=== PATIENT | female | born 1940 | race Caucasian/White ===

== ENCOUNTER 2017-11-26 07:58 | Day surgery (SDC) | payer MEDICARE, OTHER ==
[~2017-11-26] VITALS: Ht 162.6 cm; Wt 80.3 kg
[2017-11-26] MEDS ORDERED: ATEN25 (08:47)
[2017-11-26] MEDS ORDERED: HYDCHL12.5 (08:48)
[2017-11-26] MEDS ORDERED: ESOM20 (08:48)
[2017-11-26] MEDS ORDERED: LOSA25 (08:48)
[2018-05-23] MEDS ORDERED: POTA10T PO (21:08)
[2018-05-23] MEDS ORDERED: Roxicodone5 MG PO (22:43)
[2018-05-23] MEDS ORDERED: DOCU100 PO (22:43)
[2018-05-23] MEDS ORDERED: IBUP600 PO (22:43)
[2018-05-23] MEDS ORDERED: Zofran Odt4 MG PO (22:43)
== END 2017-11-26 11:15 | disposition home or self-care (01) ==
LOC: ORSCSDS 07:58
PROVIDERS: Internal Medicine Gastroenterology
PROC: 0D758ZZ Dilation of Esophagus, Via Natural or Artificial Opening Endoscopic (ICD-10-PCS; principal; 2017-11-26 09:15)
DX: R13.10 Dysphagia, unspecified (principal); K20.9 Esophagitis, unspecified; I10 Essential (primary) hypertension; K21.9 Gastro-esophageal reflux disease without esophagitis; Z79.82 Long term (current) use of aspirin; Z79.899 Other long term (current) drug therapy
CPT/HCPCS: J7120

== ENCOUNTER 2019-06-09 20:47 | Emergency (ER) | payer MEDICARE, OTHER ==
[~2019-06-09] VITALS: Ht 172.7 cm; Wt 81.7 kg
[~2019-06-09 20:47] MED LIST: ATEN25; DOCU100 PO; ESOM20; HYDCHL12.5; IBUP600 PO; LOSA25 PO; POTA10T PO; Roxicodone5 MG PO; Zofran Odt4 MG PO
[2019-06-09] MEDS ORDERED: Percocet 5-3251 EACH PO (23:02)
== END 2019-06-09 23:20 | disposition home or self-care (01) ==
LOC: ER 20:47
DX: M25.511 Pain in right shoulder (principal); W18.30XA Fall on same level, unspecified, initial encounter; Z91.018 Allergy to other foods; Z88.8 Allergy status to other drugs, medicaments and biological substances; Z88.0 Allergy status to penicillin; Z88.5 Allergy status to narcotic agent; Z79.899 Other long term (current) drug therapy
CPT/HCPCS: 73030; 73200; 99284-25; A9270

== ENCOUNTER 2019-07-14 11:45 | Emergency (ER) | payer MEDICARE, OTHER ==
[~2019-07-14] VITALS: Ht 162.6 cm; Wt 74.8 kg
[~2019-07-14 11:45] MED LIST changes: +Percocet 5-3251 EACH PO
[2019-07-14 12:17] LABS: BASOPHILS ABSOLUTE AUTO 0.03 K/mm3 (0.00-0.23); BASOPHILS PERCENT AUTO 1 % (0-2); EOSINOPHILS ABSOLUTE AUTO 0.04 K/mm3 (0.00-0.68); EOSINOPHILS PERCENT AUTO 1 % (0-6); Hematocrit 42.7 % (33.0-51.0); Hemoglobin 13.9 g/dL (11.5-16.0); IMMATURE GRAN ABSOLUTE AUTO 0.02 K/mm3 (0.00-0.10); IMMATURE GRAN PERCENT AUTO 0 % (0-1); LYMPHOCYTES PERCENT AUTO 25 % (21-46); MONOCYTES ABSOLUTE AUTO 0.62 K/mm3 (0.16-1.47); MONOCYTES PERCENT AUTO 11 % (4-13); Mean Corpuscular HGB 27.8 pg (26.0-34.0); Mean Corpuscular HGB Conc 32.6 g/dL (31.5-36.5); Mean Corpuscular Volume 85 fL (80-100); Mean Platelet Volume 9.5 fL (9.1-12.4); NEUTROPHILS ABSOLUTE AUTO 3.53 K/mm3 (1.96-9.15); NEUTROPHILS PERCENT AUTO 63 % (41-73); Platelet Count 159 K/mm3 (150-400); RDW Coefficient Variation 12.9 % (11.7-14.2); RDW Standard Deviation 39.8 fL (35.1-46.3); White Blood Cell Count 5.64 K/mm3 (4.00-11.30)
[2019-07-14 12:42] LABS: Alanine Aminotransfer (ALT/SGP 22 U/L (12-78); Albumin, Blood 3.6 g/dL (3.4-5.0); Alk Phos 103 U/L (50-136); Anion Gap 6 mmol/L (6-16); Aspartate Aminotrans (AST/SGOT 20 U/L (12-37); Bilirubin, Total 0.5 mg/dL (0.1-1.0); Blood Urea Nitrogen 19 mg/dL (8-24); CO2, Blood 26 mmol/L (21-32); Calcium, Blood 9.7 mg/dL (8.5-10.1); Chloride, Blood 106 mmol/L (98-108); Creatinine, Blood 0.87 mg/dL (0.40-1.00); Globulin, Blood 3.7 g/dL (2.2-4.0); Glomerular Filtration Rate >60 (60-); Glucose, Blood 90 mg/dL (70-99); Potassium, Blood 3.9 mmol/L (3.5-5.5); Sodium, Blood 138 mmol/L (136-145); Total Protein, Blood 7.3 g/dL (6.4-8.2); Troponin I <0.015 ng/mL (0.000-0.040)
[2019-07-14] MEDS ORDERED: ELIQUIS2.5 MG PO (15:01)
[2019-07-14] MEDS ORDERED: CARV6.25 PO (15:02)
== END 2019-07-14 16:11 | disposition home or self-care (01) ==
LOC: ER 11:45
PROVIDERS: Emergency Medicine
DX: I48.91 Unspecified atrial fibrillation (principal); K22.2 Esophageal obstruction; I10 Essential (primary) hypertension; Z88.0 Allergy status to penicillin; Z88.5 Allergy status to narcotic agent; Z88.8 Allergy status to other drugs, medicaments and biological substances; Z91.018 Allergy to other foods; Z79.01 Long term (current) use of anticoagulants; Z79.899 Other long term (current) drug therapy
CPT/HCPCS: 36415; 71046; 80053; 84484; 85025; 93005; 93010; 99285-25

== ENCOUNTER 2019-10-18 12:07 | Emergency (ER) | payer MEDICARE, OTHER ==
[~2019-10-18] VITALS: Ht 162.6 cm; Wt 74.8 kg
[~2019-10-18 12:07] MED LIST changes: +CARV6.25 PO; +ELIQUIS2.5 MG PO
[2019-10-18 13:13] LABS: BASOPHILS ABSOLUTE AUTO 0.02 K/mm3 (0.00-0.23); BASOPHILS PERCENT AUTO 0 % (0-2); EOSINOPHILS ABSOLUTE AUTO 0.07 K/mm3 (0.00-0.68); EOSINOPHILS PERCENT AUTO 1 % (0-6); Hematocrit 42.5 % (33.0-51.0); Hemoglobin 13.6 g/dL (11.5-16.0); IMMATURE GRAN ABSOLUTE AUTO 0.03 K/mm3 (0.00-0.10); IMMATURE GRAN PERCENT AUTO 0 % (0-1); LYMPHOCYTES PERCENT AUTO 20 % (21-46); MONOCYTES ABSOLUTE AUTO 0.67 K/mm3 (0.16-1.47); MONOCYTES PERCENT AUTO 9 % (4-13); Mean Corpuscular HGB 27.6 pg (26.0-34.0); Mean Corpuscular Volume 86 fL (80-100); Mean Platelet Volume 9.3 fL (9.1-12.4); NEUTROPHILS ABSOLUTE AUTO 5.22 K/mm3 (1.96-9.15); NEUTROPHILS PERCENT AUTO 70 % (41-73); Platelet Count 179 K/mm3 (150-400); RDW Coefficient Variation 12.8 % (11.7-14.2); RDW Standard Deviation 40.2 fL (35.1-46.3); Red Blood Cell Count 4.92 M/mm3 (3.80-5.20); White Blood Cell Count 7.51 K/mm3 (4.00-11.30)
[2019-10-18 13:50] LABS: Alanine Aminotransfer (ALT/SGP 26 U/L (12-78); Albumin, Blood 3.7 g/dL (3.4-5.0); Alk Phos 98 U/L (50-136); Anion Gap 8 mmol/L (6-16); Aspartate Aminotrans (AST/SGOT 22 U/L (12-37); Bilirubin, Total 0.8 mg/dL (0.1-1.0); Blood Urea Nitrogen 17 mg/dL (8-24); Bun/Creatinine Ratio 20.2 (12.0-20.0); CO2, Blood 26 mmol/L (21-32); Calcium, Blood 10.2 mg/dL (8.5-10.1); Chloride, Blood 106 mmol/L (98-108); Creatinine, Blood 0.84 mg/dL (0.40-1.00); Globulin, Blood 3.6 g/dL (2.2-4.0); Glomerular Filtration Rate >60 (60-); Glucose, Blood 82 mg/dL (70-99); Potassium, Blood 3.8 mmol/L (3.5-5.5); Sodium, Blood 140 mmol/L (136-145); Total Protein, Blood 7.3 g/dL (6.4-8.2); Troponin I <0.015 ng/mL (0.000-0.040)
[2019-10-18 15:51] LABS: International Normalized Ratio 1.01; Prothrombin Time Results 10.7 Sec (9.7-11.5)
[2019-10-18 17:55] LABS: Source, Urine Clean Catch
[2019-10-18 18:02] LABS: Bilirubin, Urine Neg (Neg); Blood, Urine Neg (Neg); Glucose Qualitative, Urine Neg (Neg); Ketones, Urine Neg (Neg); Leukocyte Esterase, Urine Neg (Neg); Nitrite, Urine Neg (Neg); Protein, Urine Neg (Neg); Urobilinogen, Urine NORM (Normal)
[2019-10-18 18:07] LABS: Appearance, Urine Clear (Clear); Color, Urine Yellow (P-Yellow)
[2019-10-18] MEDS ORDERED: Zofran4 MG PO (19:22)
[2019-10-18] MEDS ORDERED: Lopressor 50 mg50 MG PO (19:22)
== END 2019-10-18 19:45 | disposition home or self-care (01) ==
LOC: ER 12:07
PROVIDERS: Emergency Medicine; Physician Assistant
DX: I48.91 Unspecified atrial fibrillation (principal); R11.0 Nausea; Z88.0 Allergy status to penicillin; Z88.5 Allergy status to narcotic agent; Z91.040 Latex allergy status; Z91.018 Allergy to other foods; Z79.899 Other long term (current) drug therapy
CPT/HCPCS: 36415; 71046; 80053; 81003; 83880; 84484; 85025; 85610; 85730; 93005; 93010; 96374; 99285-25

== ENCOUNTER 2021-03-04 20:48 | Observation (INO) | payer MEDICARE, OTHER ==
[~2021-03-04] VITALS: Ht 162.6 cm; Wt 73.8 kg
[~2021-03-04 20:48] MED LIST changes: +Lopressor 50 mg50 MG PO; +Zofran4 MG PO
[2021-03-04] MEDS ORDERED: CLOP75 PO (21:00)
[2021-03-04 21:23] LABS: BASOPHILS ABSOLUTE AUTO 0.03 K/mm3 (0.00-0.23); BASOPHILS PERCENT AUTO 1 % (0-2); EOSINOPHILS ABSOLUTE AUTO 0.06 K/mm3 (0.00-0.68); EOSINOPHILS PERCENT AUTO 1 % (0-6); Hematocrit 38.3 % (33.0-51.0); Hemoglobin 12.7 g/dL (11.5-16.0); IMMATURE GRAN ABSOLUTE AUTO 0.01 K/mm3 (0.00-0.10); IMMATURE GRAN PERCENT AUTO 0 % (0-1); LYMPHOCYTES ABSOLUTE AUTO 1.64 K/mm3 (0.84-5.20); LYMPHOCYTES PERCENT AUTO 29 % (21-46); MONOCYTES ABSOLUTE AUTO 0.75 K/mm3 (0.16-1.47); MONOCYTES PERCENT AUTO 13 % (4-13); Mean Corpuscular HGB 27.3 pg (26.0-34.0); Mean Corpuscular HGB Conc 33.2 g/dL (31.5-36.5); Mean Corpuscular Volume 82 fL (80-100); Mean Platelet Volume 9.4 fL (9.1-12.4); NEUTROPHILS ABSOLUTE AUTO 3.26 K/mm3 (1.96-9.15); NEUTROPHILS PERCENT AUTO 57 % (41-73); Platelet Count 162 K/mm3 (150-400); RDW Coefficient Variation 12.3 % (11.7-14.2); Red Blood Cell Count 4.65 M/mm3 (3.80-5.20); White Blood Cell Count 5.75 K/mm3 (4.00-11.30)
[2021-03-04 21:37] LABS: Alanine Aminotransfer (ALT/SGP 21 U/L (12-78); Albumin, Blood 3.6 g/dL (3.4-5.0); Albumin/Globulin Ratio 0.9 (0.8-1.8); Alk Phos 127 U/L (50-136); Anion Gap 4 mmol/L (6-16); Aspartate Aminotrans (AST/SGOT 19 U/L (12-37); Bilirubin, Total 0.5 mg/dL (0.1-1.0); Blood Urea Nitrogen 12 mg/dL (8-24); Bun/Creatinine Ratio 16.2 (12.0-20.0); CO2, Blood 29 mmol/L (21-32); Calcium, Blood 9.7 mg/dL (8.5-10.1); Chloride, Blood 99 mmol/L (98-108); Creatinine, Blood 0.74 mg/dL (0.40-1.00); Globulin, Blood 3.8 g/dL (2.2-4.0); Glomerular Filtration Rate >60 (60-); Glucose, Blood 93 mg/dL (70-99); Potassium, Blood 3.5 mmol/L (3.5-5.5); Sodium, Blood 132 mmol/L (136-145); Total Protein, Blood 7.4 g/dL (6.4-8.2); Troponin I <0.015 ng/mL (0.000-0.040)
[2021-03-05 05:06] LABS: BASOPHILS ABSOLUTE AUTO 0.03 K/mm3 (0.00-0.23); BASOPHILS PERCENT AUTO 1 % (0-2); EOSINOPHILS ABSOLUTE AUTO 0.04 K/mm3 (0.00-0.68); EOSINOPHILS PERCENT AUTO 1 % (0-6); Hematocrit 34.8 % (33.0-51.0); Hemoglobin 11.8 g/dL (11.5-16.0); IMMATURE GRAN ABSOLUTE AUTO 0.01 K/mm3 (0.00-0.10); IMMATURE GRAN PERCENT AUTO 0 % (0-1); LYMPHOCYTES ABSOLUTE AUTO 1.51 K/mm3 (0.84-5.20); LYMPHOCYTES PERCENT AUTO 30 % (21-46); MONOCYTES ABSOLUTE AUTO 0.73 K/mm3 (0.16-1.47); MONOCYTES PERCENT AUTO 15 % (4-13); Mean Corpuscular HGB 27.5 pg (26.0-34.0); Mean Corpuscular HGB Conc 33.9 g/dL (31.5-36.5); Mean Corpuscular Volume 81 fL (80-100); Mean Platelet Volume 9.4 fL (9.1-12.4); NEUTROPHILS ABSOLUTE AUTO 2.67 K/mm3 (1.96-9.15); NEUTROPHILS PERCENT AUTO 54 % (41-73); Platelet Count 122 K/mm3 (150-400); RDW Coefficient Variation 12.4 % (11.7-14.2); RDW Standard Deviation 36.9 fL (35.1-46.3); Red Blood Cell Count 4.29 M/mm3 (3.80-5.20); White Blood Cell Count 4.99 K/mm3 (4.00-11.30)
[2021-03-05 05:25] LABS: Anion Gap 7 mmol/L (6-16); Blood Urea Nitrogen 10 mg/dL (8-24); Bun/Creatinine Ratio 11.9 (12.0-20.0); CO2, Blood 27 mmol/L (21-32); Calcium, Blood 9.3 mg/dL (8.5-10.1); Chloride, Blood 102 mmol/L (98-108); Creatinine, Blood 0.84 mg/dL (0.40-1.00); Glomerular Filtration Rate >60 (60-); Glucose, Blood 107 mg/dL (70-99); Potassium, Blood 3.4 mmol/L (3.5-5.5); Sodium, Blood 136 mmol/L (136-145); Troponin I <0.015 ng/mL (0.000-0.040)
--- NOTE | 2021-03-05 05:59 | NUR ---
PT ADMIT THIS SHIFT TO ROOM 226 FOR CP. VS ARE NOW STABLE TROPONINS HAVE BEEN NEGATIVE. PT IS ALERT, FORGETFUL AT TIMES, UP TO RESTROOM WITH STANDBY ASSIST. DAUGHTER TO BRING IN HOME MED AND HCTZ, NEXIUM IN WHICH PT IS UNSURE OF DOSES SHE TAKES AT HOME.
[2021-03-05] MEDS ORDERED: ESOM20 PO (07:56)
[2021-03-05] MEDS ORDERED: HYDCHL25 PO (07:58)
--- NOTE | 2021-03-05 12:12 | NUR ---
Echocardiogram completed.
--- NOTE | 2021-03-05 13:04 | NUR ---
Palliative Care Consult for AD/POLST. Pt wanting to complete a POLST. Pt resting in bed upon arrival. Pt reports pain is currently managed with current regimen. Pt denies dyspnea at this time but reports SOB when laying flat. Engaged in therapeutic discussion regard completing POLST. Educated on life sustaining treatments including risk factors, implications, and consequences of CPR. Educated on each section of POLST to complete. Assisted Pt in completing POLST with Pt's wishes for Full Code and Full Treatment. Offered therapeutic listening and answered questions. Pt reports no other concerns at this time. Spoke with Bedside RN Yohana and discussed case. POLST hanging on Pt's whiteboard for MD to sign. Palliative Care to obtain copy of POLST upon MD signature and deliver to medical records.
[2021-03-05] MEDS ORDERED: POTA8 PO (15:19)
[2021-03-05] MEDS ORDERED: LIVALO2 MG PO (15:20)
--- NOTE | 2021-03-05 19:47 | NUR ---
SHIFT SUMMARY ECHA & CARDIOLOGY CONSULT COMPLETED. PT AMBULATING W/ EASE. C/O "AORTA" PAIN AND LOWER BACK PAIN.
--- NOTE | 2021-03-05 22:34 | NUR ---
BLOOD PRESSURE PT HAD REFUSED TO TAKE HER 2100 DOSE OF NORVASC (SEE EMAR). PT WANTED TO JUST TAKE ANOTHER DOSE OF HER HOME COREG. I DISCUSSED WITH HER THE FACT THAT SHE HAD ALREADY TAKEN THAT MEDICATION TWICE TODAY (SEE EMAR) AND THAT A 3RD DOSE THIS CLOSE TO THE LAST DOSE SHE TOOK IS NOT RECOMMENDED. I ALSO DISCUSSED HER TWO PRN MEDICATIONS THAT I COULD GIVE HER FOR ELEVATED BP (SEE MED ORDERS) IN WHICH SHE REFUSED THEM BOTH. PT REPORTED JUST WANTING TO GO TO BED AT THIS TIME. WILL CONTINUE TO MONITOR BP AND ENCOURAGE FOR COVERAGE IF IT REMAINS ELEVATED.
--- NOTE | 2021-03-05 22:38 | NUR ---
HOME MEDS PT HAS BAG OF HER OWN HOME MEDICATIONS. PT REPORTS THAT SHE PREFERS TO TAKE HER OWN MEDICATIONS INSTEAD OF THE HOSPITAL MEDICATIONS. PT REFUSING TO ALLOW US TO SEND THEM TO PHARMACY AT THIS TIME FOR VERIFICATION. PT ALSO APPREARS TO BE VERY ANXIOUS AT THIS TIME AFTER DISCUSSION OF BP CONDITION AND CURRENT MEDICATIONS. WILL READDRESS THIS WHEN PT HAS CALMED DOWN AND IS LESS ANXIOUS.
--- NOTE | 2021-03-06 05:09 | NUR ---
SHIFT SUMMARY S/P CHEST PAIN, A/O X4, VSS, TOLERATING PO, VOIDING, PASSING FLATUS, INDEPENDENT IN ROOM, NON COMPLIANT W/ NEW CARDIAC MEDS STARTED TODAY, PT REPORTED THAT SHE HAD TAKEN THEM BEFORE AND HER PRIMARY CARE DOCTOR HAD DC'D IT DUE TO IT BEING TO HARD ON HER, PT REFUSED TAKING OTHER PRN BP MEDICATIONS WHEN HER BP WAS ELEVATED, PT EDUCATED ON IMPORTANCE OF BP CONTROL BUT ELECTED TO TRY AND REST AND RELAX TO MANAGE IT. NO ACUTE EVENTS THIS SHIFT, POSSIBLE DC TODAY. CALL LIGHT IN REACH, WILL CONTINUE TO MONITOR AND REPORT TO ONCOMING DAY RN.
[2021-03-06] MEDS ORDERED: NITR.4SL SL (11:33)
[2021-03-06] MEDS ORDERED: ASPI81CH PO (11:34)
--- NOTE | 2021-03-06 12:19 | NUR ---
DISCHARGE PACKET MADE FOR PT TO BRING TO F/U APPNTS THAT INCLUDE IMAGING. CALLED MADE TO BOTH [facility] & PCP OFFICE. NO OPEN APPOINTMENTS AVAILABLE PRIOR TO WHAT WAS ALREADY SCHEDULED FOR HER. STRESSED IMPORTANCE OF CALLING OFFICE'S SHOULD SHE HAVE ANY CHANGES TO HER BASELINE OR RETURNING TO ER FOR CP. MEDS FAXED TO [facility].
== END 2021-03-06 12:20 | disposition home or self-care (01) ==
LOC: ER 20:48 → SURS 20:49
PROVIDERS: Emergency Medicine; Nurse Practitioner Acute Care; ADMIT Family Medicine
DX: R07.89 Other chest pain (principal); I10 Essential (primary) hypertension; K21.9 Gastro-esophageal reflux disease without esophagitis; I25.10 Atherosclerotic heart disease of native coronary artery without angina pectoris; I48.19 Other persistent atrial fibrillation; E78.5 Hyperlipidemia, unspecified; Z98.61 Coronary angioplasty status; Z79.01 Long term (current) use of anticoagulants
CPT/HCPCS: 36415; 71045; 71275; 74175; 80048; 80053; 83690; 83880; 84484; 85025; 93005; 93010; 93306; 99285-25; A9270; G0378; J7030; Q9967